=== PATIENT | female | born 1990 | race Caucasian/White ===

== ENCOUNTER 2021-10-05 00:50 | Inpatient (IN) | payer OTHER ==
[~2021-10-05] VITALS: Ht 160 cm; Wt 67.6 kg
[~2021-10-05 00:50] MED LIST: KETO10TA2 PO; ORPH100T PO
[2021-10-07] MEDS ORDERED: NAPR500T14 PO (12:18)
== END 2021-10-07 12:33 | disposition home or self-care (01) | DRG 761 ==
LOC: ER 00:50 → OB/GYN 17:44
PROVIDERS: ADMIT Obstetrics & Gynecology; ATTEND Obstetrics & Gynecology
PROC: BW21ZZZ Computerized Tomography (CT Scan) of Abdomen and Pelvis (ICD-10-PCS; principal; 2021-10-05)
PROC: BU4CZZZ Ultrasonography of Uterus and Ovaries (ICD-10-PCS; 2021-10-05)
DX: N83.291 Other ovarian cyst, right side (principal); Z20.822 Contact with and (suspected) exposure to COVID-19